=== PATIENT | female | born 1995 | race Caucasian/White ===

== ENCOUNTER 2018-01-20 10:34 | Emergency (ER) | payer MEDICAID ==
[2018-01-20] MEDS ORDERED: NS 500 ML IV ONE (12:05)
[2018-01-20 12:14] LABS: PLATELET COUNT 295 10^3/uL (150-400)
[2018-01-20] MEDS ORDERED: IOPAMIDOL (ISOVUE 370) 100 ML BTL IV ONE (13:20)
--- NOTE | 2018-01-20 13:51 | EDPHY ---
H & P Time Seen by Provider: 01/20/18 12:04 HPI/ROS: HPI Fainted yesterday. Chest discomfort. 22-year-old female by private vehicle. This patient is currently in an alcohol recovery program. She reports that she was sitting yesterday. She was feeling nauseous. She got up to go get a glass of water. While she was walking across the room to get a glass of water she had sudden onset lightheadedness and fainted. At that time she denies any associated shortness of breath, chest pain , palpitations or headache. She reports that today she has felt sleepy and has had some chest discomfort which she describes as chest tightness mid substernal. ROS: Constitutional: No fever, no chills. As above. Eyes: No discharge. No changes in vision. ENT: No sore throat. No nasal congestion or rhinorrhea. Respiratory: No cough. No shortness of breath. Cardiac: As above, no palpitations. Gastrointestinal: No abdominal pain, no vomiting, no diarrhea. Genitourinary: No hematuria. No dysuria or increased frequency with urination. Musculoskeletal: No back pain. No neck pain. No myalgias or arthralgias. Skin: No rashes. Neurological: No headache. No focal weakness or altered sensation. Past medical history: Depression, alcohol abuse. Social history: Nonsmoker. As above. Here by herself. Physical Exam: General Appearance: Alert, no distress. Obese habitus. This patient is responding to questions appropriately and in full sentences. This patient appears well-hydrated and well-nourished. Eyes: Pupils equal and round no pallor or injection. No lid edema, erythema or injection. Respiratory: There are no retractions, lungs are clear to auscultation with good air movement bilaterally. Cardiovascular: Regular rate and rhythm. No murmur. Neurological: Motor sensory function is grossly intact. Cranial nerves are normal. Gait is normal. Skin: Warm and dry, no rashes. Musculoskeletal: Neck is supple and nontender. Extremities are symmetrical. All joints range without pain or impingement. Psychiatric: No agitation. No depression. Database: EKG: EKG time is 11:50 a.m.; EKG shows a narrow complex normal sinus rhythm with a ventricular rate of 61. Subtle ST elevation in the inferior leads. No reciprocal changes. No evidence of WPW, Brugada syndrome, hypertrophic cardiomyopathy. The VA, QRS, QT intervals are within normal limits. No evidence of right heart strain. Interpreted by me. Imaging: Chest x-ray AP poor; the cardiac mediastinal silhouette is unremarkable. No evidence of infiltrate or pneumothorax. No acute cardiopulmonary disease process noted. Interpreted by me. CT scan of chest with IV contrast: Negative for pulmonary embolism or other acute pathology. Results were discussed with staff radiologist Dr. Darrin Woodall. Procedures: Emergency department course: Triage vital signs reviewed and are normal. IV was placed. She was placed on a director of cardiac rehabilitation. EKG obtained and reviewed by myself. She is low risk by heart score. 1:30 p.m., patient re-evaluated, resting comfortably at this time. Results of EKG, chest x-ray and blood work discussed with her. Need for CT angiogram discussed. She consents. 2:00 p.m., patient re-evaluated. No chest pain at this time. Results of her CT angiogram discussed with her. She feels comfortable going home and I feel she is safe for discharge. I will have her follow up with her primary care physician on Tuesday for re-evaluation. She feels comfortable with this plan. Return to emergency department precautions thoroughly reviewed with her. All of her questions were answered. She was discharged from the emergency department in good condition. Differential Diagnosis: The differential diagnosis on this patient includes but is not limited to vasovagal syncope, noncardiac syncope. Acute coronary syndrome, pulmonary embolism, CVA, aortic dissection unlikely. This represents a partial list of diagnoses considered. These considerations are based on history, physical exam , past history, reassessment and diagnostic testing. Smoking Status: Never smoked Constitutional: Initial Vital Signs Temperature (C) 36.7 C 01/20/18 10:44 Heart Rate 67 01/20/18 10:44 Respiratory Rate 18 01/20/18 10:44 Blood Pressure 117/70 01/20/18 10:44 O2 Sat (%) 98 01/20/18 10:44 O2 Delivery Mode Room Air Allergies/Adverse Reactions: lamotrigine [From Lamictal] Allergy (Verified 01/20/18 10:46) Home Medications: Medication Instructions Recorded Abilify 01/20/18 Albuterol Sulfate 01/20/18 Cymbalta 01/20/18 Flovent Hfa 01/20/18 Kelnor 1-35 28 Tablet 01/20/18 Valtrex 01/20/18 Medical Decision Making - Data Points Laboratory Results: Laboratory Results 01/20/18 11:50 01/20/18 11:50 Medications Given: Discontinued Medications Sodium Chloride (Ns) 500 mls @ 1,000 mls/hr IV EDNOW ONE PRN Reason: Protocol Stop: 01/20/18 12:34 Last Admin: 01/20/18 12:46 Dose: 500 mls Ibuprofen (Motrin) 600 mg PO EDNOW ONE Stop: 01/20/18 14:10 Last Admin: 01/20/18 14:12 Dose: 600 mg Point of Care Test Results: Chemistry 01/20/18 13:06 POC Troponin I 0.00 ng/mL ng/mL (0.00-0.08) Departure - Departure Disposition: Home, Routine, Self-Care Clinical Impression: Syncope, Chest discomfort Condition: Good Instructions: Syncope (ED) Additional Instructions: Read and follow provided instructions. Follow-up with your primary care physician in on Tuesday for re-evaluation as discussed. Take your medication as prescribed. Stay well hydrated. Return to the emergency department for fainting, lightheadedness, palpitations, worsening or persistent chest pain or other serious concerns. Referrals: NONE *PRIMARY CARE P,. [Primary Care Provider] - As per Instructions
[2018-01-20] MEDS ORDERED: IBUPROFEN 600 MG TAB PO ONE (14:09)
[2018-01-20 14:20] VITALS: BP 113/49
--- NOTE | 2018-01-20 15:19 | CPEKG ---
Test Reason : OPEN Blood Pressure : / mmHG Vent. Rate : 061 BPM Atrial Rate : 059 BPM P-R Int : 160 ms QRS Dur : 086 ms QT Int : 392 ms P-R-T Axes : -52 045 059 degrees QTc Int : 395 ms Sinus or ectopic atrial rhythm Nonspecific T abnormalities, lateral leads Confirmed by Chirag Sher ([id number]) on 01/20/2018 3:18:44 PM Referred By: Confirmed By:Chirag Sher
== END 2018-01-20 14:22 | disposition home or self-care (01) ==
DX: R07.9 Chest pain, unspecified (principal); R55 Syncope and collapse; E66.9 Obesity, unspecified
CPT/HCPCS: 84484-PO; Q9967